=== PATIENT | female | born 1980 | race Caucasian/White ===

== ENCOUNTER → 2019-01-13 | Day surgery (SDC) | payer BC ==
[2019-01-10 08:46] VITALS: BMI 27.4
[~2019-01-13] MED LIST: SODIUM CHLORIDE 0.9% 1,000 ML IV SCH
[2019-01-13 09:39] VITALS: RESP 18
--- NOTE | 2019-01-13 12:39 | P.PCN ---
Preoperative Diagnosis: Diagnosis Recurrent presyncope associated with nausea vomiting or sweatiness and feeling sick Palpitations Twelve-lead ECG shows sinus mechanism normal WI narrow QRS normal ST segments normal QT interval no epsilon waves no delta waves Tilt table test per protocol Baseline blood pressure 116/69 mmHg baseline 177 beats a minute patient was tilted upright at an angle of 70 per protocol. Blood pressure remained stable through the procedure. There was a slight increase in blood pressure but there was no drop in blood pressure Heart rate initially remained in the 90s and low 100s in the first 10-15 minutes. 2 is the end of the test heart rates went up to 120s. At that time she is feeling sick nauseous sweaty blood pressure was 138/88 mmHg and a heart rate was 117-123 beats a minute Patient is laid supine at the end of the procedure, heart rate was 96 beats a minute blood pressure is 131 beats a minute Impression Normal twelve-lead ECG Tilt table test shows mild orthostatic intolerance No secondary neurocardiogenic phenomena No evidence for any cardioinhibitory response either However it did reproduce all her clinical symptoms However she gets these episodes of nausea feeling sick warm heart with palpitations, even when she is sitting In fact most of her episodes occur when she is sitting This is not consistent with orthostatic intolerance or vasodepressive syncope under usual circumstances Suggest Diagnostic EP study likely with the use of IV heparin Patient has a platelet aggregation disorder and 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
[2019-01-13 12:42] VITALS: BP 124/78
== END ==
LOC: CATHEP 08:49
PROVIDERS: ATTEND Internal Medicine Clinical Cardiac Electrophysiology
DX: R55 Syncope and collapse (principal); R00.2 Palpitations; R11.2 Nausea with vomiting, unspecified; I10 Essential (primary) hypertension; Z79.899 Other long term (current) drug therapy
CPT/HCPCS: 81025; 93660

== ENCOUNTER 2020-05-11 14:31 | Day surgery (SDC) | payer BC ==
[2020-05-10 11:31] VITALS: BMI 30.7
[~2020-05-11 14:31] MED LIST changes: +DESMOPRESSIN ACETATE 0.3 MCG in SODIUM CHLORIDE 0.9% 50 ML IVPB ONE; +DESMOPRESSIN ACETATE 26 MCG in SODIUM CHLORIDE 0.9% 50 ML IVPB ONE; -SODIUM CHLORIDE 0.9% 1,000 ML IV SCH
[2020-05-11] MEDS: SODIUM CHLORIDE 0.9% 1,000 ML IV SCH (15:03)
[2020-05-11 15:11] LABS: Anisocytosis Slight; Basophils # (A) 0.1 k/uL (0-0.2); Basophils % (A) 1 %; Eosinophils # (A) 0.2 k/uL (0-0.7); Eosinophils % (A) 3 %; HCT 37.5 % (34.0-46.0); HGB 11.8 gm/dL (11.4-16.0); Hypochromasia Moderate; Lymphocytes # (A) 2.3 k/uL (1.0-4.8); Lymphocytes % (A) 36 %; MCH 25.5 pg (25.0-35.0); MCHC 31.4 g/dL (31.0-37.0); MCV 81.2 fL (80.0-100.0); Mean Platelet Volume 6.9; Monocytes # (A) 0.4 k/uL (0-1.0); Monocytes % (A) 6 %; Neutrophils # (A) 3.4 k/uL (1.3-7.7); Neutrophils % (A) 53 %; Platelet Count 420 k/uL (150-450); RBC 4.62 m/uL (3.80-5.40); RDW 16.8 % (11.5-15.5); WBC 6.4 k/uL (3.8-10.6)
[2020-05-11 15:25] LABS: African American GFR (CKD) >90 (>60 ml/min/1.73 sqM); Anion Gap 8 mmol/L; Blood Urea Nitrogen 8 mg/dL (7-17); Calcium 9.2 mg/dL (8.4-10.2); Carbon Dioxide 23 mmol/L (22-30); Chloride 106 mmol/L (98-107); Glucose 96 mg/dL (74-99); Non-African American GFR(CKD) >90 (>60 ml/min/1.73 sqM); Potassium 4.1 mmol/L (3.5-5.1); Sodium 137 mmol/L (137-145)
[2020-05-11] MEDS ORDERED: GLYCOPYRROLATE 0.2 MG/ML 2 ML VIAL ONE (17:12)
[2020-05-11] MEDS ORDERED: fentaNYL (PF) 50 MCG/ML 2 ML AMP ONE (17:12)
[2020-05-11] MEDS ORDERED: MIDAZOLAM 2 MG/2 ML VIAL ONE (17:12)
[2020-05-11] MEDS ORDERED: DESMOPRESSIN ACETATE 4 MCG/ML VIAL (MDV) ONE (17:12)
[2020-05-11] MEDS ORDERED: ISOPROTERENOL 250 MCG/1.25 ML SYR IV ONE (17:12)
[2020-05-11] MEDS ORDERED: PROPOFOL 10 MG/ML 20 ML VIAL IV ONE (17:12)
[2020-05-11] MEDS ORDERED: LIDOCAINE 1% INJ 10MG/ML (20 ML MDV) ONE (17:30)
[2020-05-11] MEDS ORDERED: LIDOCAINE 1% INJ 10MG/ML (20 ML MDV) SQ ONE (17:51)
[2020-05-11] MEDS ORDERED: HYDROcodone/APAP 5-325MG 1 EACH TAB PO PRN (19:43)
[2020-05-11] MEDS ORDERED: ACETAMINOPHEN TAB 325 MG TAB PO PRN (19:43)
--- NOTE | 2020-05-11 19:43 | P.PRLE ---
RE: Shanae May Dear Haider Damon would underwent a diagnostic EP study for palpitations associated with presyncope even while sitting. She had AV maxwell reentrant tachycardia was somewhat difficult to induce. However the slow pathway was mapped and successfully ablated and the tachycardia was rendered noninducible However she does have a tendency for vasovagal syncope and I think she even has inappropriate sinus tachycardia I would treat her medically for these conditions in the future Thank you for entrusting me with the care of the patient Warm regards Sincerely Gerard Lin
--- NOTE | 2020-05-11 19:47 | P.PN ---
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
[2020-05-11] MEDS ORDERED: ACETAMINOPHEN IV (For NPO) 1,000 MG in EMPTY BAG 1 BAG IVPB ONE (20:00)
[2020-05-11] MEDS: PANTOPRAZOLE 40 MG TABLET PO SCH (21:18)
[2020-05-11] MEDS: HYDROXYCHLOROQUINE SULFATE 200 MG TAB PO SCH (21:18)
[2020-05-12 02:26] VITALS: PULSE 80
--- NOTE | 2020-05-12 05:42 | CE ---
CARDIAC ELECTROPHYSIOLOGY REPORT Shanae May is a 39-year-old female who has a history of orthostatic intolerance and has been treated for this. However, she continues to have palpitations associated with presyncope even while sitting. She is brought in for diagnostic EP study. She has platelet aggregation disorder and the plan was to treat her with DDAVP prior to sheath pull. Patient was brought to the EP lab in a fasting state. Written informed consent was obtained prior to the procedure. The right groin was prepped and draped as per protocol. Three venous sheaths were placed in the right femoral vein via these diagnostic catheters were positioned in the high right atrium, His bundle, right ventricle and coronary sinus. A full diagnostic EP study was performed. MI interval 150 milliseconds, QRS 88 milliseconds, QT 371 milliseconds. AH interval 89 milliseconds, HV interval 41 milliseconds. Sinus node recovery times were within normal limits. AV node Wenckebach block 300 milliseconds atrial extra stimulation was performed up to a single extrastimuli. No ST-T was induced. VA Wenckebach block greater than 600 milliseconds in the baseline sedated state. Bursts from the right ventricle were performed. No arrhythmias induced. Ventricular extra stimulation was performed. No arrhythmias induced. High-dose Isuprel was employed in 5 mcg and then 2 mcg. AV node Wenckebach block from the coronary sinus improved to 230 milliseconds. Extra stimulation was performed up to double extrastimuli from the atria. No SVT was induced. There was no evidence of slow pathway conduction or accessory pathway conduction. However, on Isuprel at 5 mcg, with ventricular extra stimulation at 400\290 milliseconds, SVT was induced with short septal times. The VA AV response was noted with entrainment from the right ventricle. The post pacing interval was long consistent with AV maxwell reentry. A mapping and ablation catheter was placed via a long sheath. The slow pathway was mapped. His cloud was mapped. Coronary sinus os and roof were mapped. Slow pathway ablation was performed outside and anterior to the coronary sinus os and just outside the roof. Good temperature was noted. Good impedance drop was noted. However, no junctional beats were noted. Following that, high-dose Isuprel was employed and atrial extra stimulation as well as ventricular extra stimulation was performed with ventricular extra stimuli no SVT was induced. No AV maxwell re-entry was induced now. At the end of the procedure all catheters were removed and patient was transferred back to telemetry. RESULT: 1. Inducible AV maxwell reentrant tachycardia with ventricular extra stimulation on Isuprel. 2. Successful mapping and slow pathway of AV maxwell reentry. 3. The tachycardia was rendered noninducible with ventricular extra stimulation on Isuprel. PLAN: Administer DDAVP and remove sheaths and monitor overnight. MMTC / DON: [id number] /
[2020-05-12] MEDS: PANTOPRAZOLE 40 MG TABLET PO SCH (06:21)
[2020-05-12] MEDS: SODIUM CHLORIDE 0.9% 1,000 ML IV SCH (06:23)
[2020-05-12 08:13] VITALS: BP 106/71; RESP 16; TEMP 98
--- NOTE | 2020-05-12 08:14 | P.DS ---
Providers Attending physician: Gerard Lin Primary care physician: Ha[facility] Course: Patient is resting comfortably in bed. 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 Lin/Radha Johnson/Stephanie Hale Plan - Discharge Summary Discharge Rx Participant: No New Discharge Prescriptions: No Action rOPINIRole HCL [Requip] 1 mg PO TID Hydroxychloroquine Sulfate [Plaquenil] 200 mg PO BID RABEprazole SODIUM [Aciphex] 20 mg PO BID DULoxetine HCL [Cymbalta] 60 mg PO DAILY Cetirizine HCl [Zyrtec] 10 mg PO DAILY Sucralfate [Carafate] 1 gm PO BID metHOTREXate sodium [Methotrexate] 5 tab PO SA armodafiniL [Armodafinil] 200 mg PO QAM Pravastatin Sodium [Pravachol] 40 mg PO DAILY Cyclobenzaprine HCl 5 mg PO TID PRN PRN Reason: Pain Discharge Medication List Hydroxychloroquine Sulfate [Plaquenil] 200 mg PO BID 01/10/19 [History] rOPINIRole HCL [Requip] 1 mg PO TID 01/10/19 [History] Cetirizine HCl [Zyrtec] 10 mg PO DAILY 04/23/20 [History] DULoxetine HCL [Cymbalta] 60 mg PO DAILY 04/23/20 [History] RABEprazole SODIUM [Aciphex] 20 mg PO BID 04/23/20 [History] Sucralfate [Carafate] 1 gm PO BID 04/23/20 [History] metHOTREXate sodium [Methotrexate] 5 tab PO SA 04/23/20 [History] Cyclobenzaprine HCl 5 mg PO TID PRN 05/11/20 [History] Pravastatin Sodium [Pravachol] 40 mg PO DAILY 05/11/20 [History] armodafiniL [Armodafinil] 200 mg PO QAM 05/11/20 [History]
[2020-05-12] MEDS ORDERED: DULoxetine HCL 60 MG CAPSULE.DR PO SCH (09:00)
[2020-05-12] MEDS ORDERED: ARMODAFINIL 200 MG PO SCH (09:00)
[2020-05-12] MEDS ORDERED: PRAVASTATIN SODIUM 40 MG TAB PO SCH (09:00)
[2020-05-12] MEDS: HYDROXYCHLOROQUINE SULFATE 200 MG TAB PO SCH (09:26)
[2020-05-15] MEDS ORDERED: metHOTREXate sodium 2.5 MG TAB PO SCH (09:00)
== END 2020-05-12 09:52 | disposition home or self-care (01) ==
LOC: CATHEP 14:31 → 3NCARDOBS 18:51 → CATHEP 05-12 09:52
PROVIDERS: ATTEND Internal Medicine Clinical Cardiac Electrophysiology
DX: I47.1 Supraventricular tachycardia (principal); R55 Syncope and collapse; F17.210 Nicotine dependence, cigarettes, uncomplicated; K21.9 Gastro-esophageal reflux disease without esophagitis; Z88.6 Allergy status to analgesic agent; Z88.5 Allergy status to narcotic agent; Z88.8 Allergy status to other drugs, medicaments and biological substances; Z79.899 Other long term (current) drug therapy
CPT/HCPCS: 93623; 93653; 80048; 85025; 81025; C1894; C1769 ×2; C1730; C1732; C1893; J2250; J2001; J3010; J0131; J2704